=== PATIENT | female | born 1950 | race Caucasian/White ===

== ENCOUNTER 2020-06-17 13:31 | Emergency (ER) | payer BC, OTHER ==
[~2020-06-17] VITALS: Ht 160 cm; Wt 63.5 kg
[2020-06-17] MEDS ORDERED: NEOMY/BACITRA/POLYMYXIN B OINT UD PACKET TP ONE ×2 (14:00→14:04)
[2020-06-17] MEDS ORDERED: LIDOCAINE HCL 2% 20 ML VIAL TP ONE (14:00)
--- NOTE | 2020-06-17 14:11 | NUR ---
Patient discharged to home in stable condition. Written and verbal after care instructions given. Patient verbalizes understanding of instructions. Stressed follow up or return to ER for worsening s/s.
== END 2020-06-17 14:12 | disposition home or self-care (01) ==
LOC: ER 13:31
DX: S61.412A Laceration without foreign body of left hand, initial encounter (principal); W23.0XXA Caught, crushed, jammed, or pinched between moving objects, initial encounter; Y92.89 Other specified places as the place of occurrence of the external cause; J45.909 Unspecified asthma, uncomplicated; D84.9 Immunodeficiency, unspecified
CPT/HCPCS: A4663; J3490

== ENCOUNTER 2020-06-19 20:03 | Emergency (ER) | payer BC ==
[~2020-06-19] VITALS: Ht 160 cm; Wt 63.5 kg
--- NOTE | 2020-06-19 20:28 | NUR ---
Dr Marielena Cruz at bedside for MSE.
[2020-06-19] MEDS ORDERED: TDAP DIPH,PERTUSS,TET VAC/PF 0.5 ML DISP.SYRIN IM ONE ×2 (20:30→20:42)
[2020-06-19] MEDS ORDERED: CEFTRIAXONE 1 G VIAL IM ONE (20:30)
[2020-06-19] MEDS ORDERED: CEPH500C2 PO (20:37)
[2020-06-19] MEDS ORDERED: CEFTRIAXONE 1 G VIAL ONE (20:42)
[2020-06-19] MEDS ORDERED: LIDOCAINE HCL 1% 20 ML VIAL ONE (20:42)
--- NOTE | 2020-06-19 21:10 | NUR ---
Patient has been cleared for DC by MD. No adverse reactions noted on patient after IM injection of ATB and TDAP vaccine. Patient discharged to home in stable condition. Written and verbal after care instructions given. Patient verbalizes understanding of instructions. Stressed follow up in ED/PCP in 2 days for wound recheck/7 days for suture removal or return to ER for worsening s/s. Ambulated out of ED in steady gait.
[2020-06-19 21:11] VITALS: BP 140/90
== END 2020-06-19 21:12 | disposition home or self-care (01) ==
LOC: ER 20:05
DX: S61.412D Laceration without foreign body of left hand, subsequent encounter (principal); X58.XXXD Exposure to other specified factors, subsequent encounter; J45.909 Unspecified asthma, uncomplicated; L08.9 Local infection of the skin and subcutaneous tissue, unspecified
CPT/HCPCS: 90471; 90715; 96372; 99284; J0696; J3490; A4663

== ENCOUNTER 2020-06-27 20:36 | Emergency (ER) | payer BC ==
[~2020-06-27] VITALS: Ht 160 cm; Wt 63.5 kg
[~2020-06-27 20:36] MED LIST: CEPH500C2 PO
--- NOTE | 2020-06-27 21:15 | NUR ---
Dr. Riley at bedside for MSE.
[2020-06-27 22:12] VITALS: BP 145/78
--- NOTE | 2020-06-27 22:12 | NUR ---
Patient discharged to home in stable condition. Written and verbal after care instructions given. Patient verbalizes understanding of instructions. Stressed follow up or return to ER for worsening s/s. Patient out of ER with steady gait, no acute signs of distress, VSS, all belongings taken.
== END 2020-06-27 22:13 | disposition home or self-care (01) ==
LOC: ER 20:38
DX: S61.412D Laceration without foreign body of left hand, subsequent encounter (principal); W45.8XXD Other foreign body or object entering through skin, subsequent encounter; Z87.891 Personal history of nicotine dependence; D84.9 Immunodeficiency, unspecified; Z86.718 Personal history of other venous thrombosis and embolism; J45.909 Unspecified asthma, uncomplicated
CPT/HCPCS: A4663